=== PATIENT | male | born 1950 | race Caucasian/White ===

== ENCOUNTER 2017-06-27 08:46 | Emergency (ER) | END 2017-06-27 12:18 | disposition home or self-care (01) ==

== ENCOUNTER 2017-07-07 18:41 | Inpatient (IN) | END 2017-07-10 13:25 | disposition home or self-care (01) | DRG 872 ==

== ENCOUNTER 2018-02-16 21:44 | Emergency (ER) | END 2018-02-16 23:58 | disposition home or self-care (01) ==